=== PATIENT | male | born 1990 | race Caucasian/White ===

== ENCOUNTER 2019-04-16 18:56 | Emergency (ER) | payer OTHER ==
[~2019-04-16] VITALS: Ht 172.7 cm; Wt 77.1 kg
[2019-04-16 18:58] VITALS: BP 118/71
[2019-04-16] MEDS ORDERED: IBUPROFEN 800800 M1 PO (19:28)
[2019-04-16] MEDS ORDERED: CENTANY30 GM TOP (19:28)
[2019-04-16] MEDS ORDERED: TRAMADOL 50 MG50 MG PO (19:28)
== END 2019-04-16 19:37 | disposition home or self-care (01) ==
LOC: M.ERS 18:56
DX: S30.811A Abrasion of abdominal wall, initial encounter (principal); K42.9 Umbilical hernia without obstruction or gangrene; X58.XXXA Exposure to other specified factors, initial encounter; Y93.89 Activity, other specified; Y92.89 Other specified places as the place of occurrence of the external cause; Y99.8 Other external cause status